=== PATIENT | male | born 2000 ===

== ENCOUNTER 2020-12-05 23:43 | Emergency (ER) | payer SELFPAY ==
--- NOTE | 2020-12-06 10:54 | RAD ---
RIGHT THUMB THREE VIEWS: 12/06/20 FINDINGS: There is an irregularity at the base of the proximal phalanx, radial side of the first MCP joint, con sistent with an old healed fracture. No acute bony injury is seen. The visible carpal bones appear in tact. IMPRESSION: Old posttraumatic changes at the first metacarpophalangeal joint laterally but no acute findings. POS: HOME
== END 2020-12-06 00:34 | disposition home or self-care (01) ==
LOC: BURERS 23:43
DX: S63.601A Unspecified sprain of right thumb, initial encounter (principal); W22.8XXA Striking against or struck by other objects, initial encounter; F17.220 Nicotine dependence, chewing tobacco, uncomplicated